=== PATIENT | female | born 1980 | race Caucasian/White ===

== ENCOUNTER 2016-08-02 13:12 | Emergency (ER) | payer MEDICAID ==
[2016-08-02 13:13] VITALS: BMI 27.6
[2016-08-02 13:35] VITALS: BP 111/74; PULSE 58; RESP 18; TEMP 98.1; O2SAT 98
--- NOTE | 2016-08-02 14:39 | ED PDOC ---
Arrival/HPI - General Chief Complaint: GI Problem Time Seen by Provider: 08/02/16 14:29 Historian: Patient - History of Present Illness Narrative History of Present Illness (Text): 08/02/16 14:29 36 y/o female, pmh including HIV (CD4 count undetectable about 2 months ago), allergic to sulfa and fluoroquinolones, c/o coughing/headache/diarrhea x 3 days with no recent traveling. Pt. stated that she nasa congestion with the sinus pressure, aching throat pain with productive coughing, +smoker, associated with loose stool about 3 days ago with total of 3 episodes with no blood. Pt. has no rash, no neck stiffness, no dizziness, no change in vision, no fatigue or lethargic, no other medical or psychological complaints. Past Medical History - Provider Review Nursing Documentation Reviewed: Yes - Past History Past History: Non-Contributing - Infectious Disease Hx of Infectious Diseases: None - Tetanus Immunization Tetanus Immunization: Up to Date - Cardiac Hx Cardiac Disorders: Yes Hx Hypertension: Yes - Pulmonary Hx Chronic Obstructive Pulmonary Disease (COPD): Yes - Neurological Hx Neurological Disorder: No - HEENT Hx HEENT Disorder: No - Renal Hx Renal Disorder: No - Endocrine/Metabolic Hx Endocrine Disorders: No - Hematological/Oncological Hx Hepatitis C: Yes - Integumentary Hx Dermatological Disorder: No - Musculoskeletal/Rheumatological Hx Falls: No - Gastrointestinal Hx Gastrointestinal Disorders: No - Genitourinary/Gynecological Hx Genitourinary Disorders: No - Psychiatric Hx Depression: No Hx Emotional Abuse: No Hx Physical Abuse: No Hx Substance Use: No - Past Surgical History Past Surgical History: Non-Contributing - Surgical History Hx Section: Yes (3) Hx Tubal Ligation: Yes - Anesthesia Hx Anesthesia: Yes Hx Anesthesia Reactions: No Hx Malignant Hyperthermia: No - Suicidal Assessment Feels Threatened In Home Enviroment: No Family/Social History - Physician Review Nursing Documentation Reviewed: Yes Family/Social History: Unknown Family HX Smoking Status: Light Smoker < 10 Cigarettes Daily Hx Alcohol Use: Yes Frequency of alcohol use: Socially Hx Substance Use: No Hx Substance Use Treatment: No Allergies/Home Meds Allergies/Adverse Reactions: Allergies sulfamethoxazole Allergy (Verified 08/02/16 13:37) ITCHING bactrim Allergy (Uncoded 08/02/16 13:37) ITCHING levaq Allergy (Uncoded 08/02/16 13:37) ITCHING Home Medications: Home Meds Medication Instructions Recorded Confirmed Emtricitabine/Tenofovir [Truvada 1 tab PO DAILY 08/02/16 08/02/16 200 mg-300 mg Tablet] Tivicay 1 tab PO DAILY 08/02/16 08/02/16 Review of Systems - Review of Systems Constitutional: absent: Fatigue, Fevers Eyes: absent: Vision Changes ENT: Rhinorrhea, Sinus Congestion. absent: Hearing Changes, Tinnitus, TMJ Pain , Voice Changes, Sore Throat Respiratory: Cough, Sputum, Wheezing. absent: SOB Cardiovascular: absent: Chest Pain Gastrointestinal: Diarrhea. absent: Abdominal Pain, Nausea, Vomiting Genitourinary Female: absent: Dysuria, Frequency, Hematuria, Urine Output Changes, Vaginal Bleeding, Vaginal Discharge, Other Skin: absent: Rash, Skin Lesions, Laceration, Abscess, Ulcer, Cellulitis Neurological: Headache. absent: Dizziness, Focal Weakness, Gait Changes, Speech Changes, Facial Droop, Disequilibrium, Seizure Physical Exam Vital Signs Reviewed: Yes Vital Signs Temp Pulse Resp BP Pulse Ox 08/02/16 13:29 98.1 F 58 L 18 111/74 98 Temperature: Afebrile Blood Pressure: Normal Pulse: Regular Respiratory Rate: Normal Appearance: Positive for: Well-Appearing, Non-Toxic, Comfortable Pain Distress: Moderate Mental Status: Positive for: Alert and Oriented X 3 - Systems Exam Head: Present: Normocephalic. No: Atraumatic Pupils: Present: PERRL Extroacular Muscles: Present: EOMI Conjunctiva: Present: Normal Ears: Present: NORMAL TM, Normal Canal. No: Erythema Mouth: Present: Moist Mucous Membranes, Normal Lips. No: Drooling, Normal Tounge, Normal Teeth Pharnyx: No: ERYTHEMA, EXUDATE, TONSILS ENLARGED, Uvular Deviation, Muffled/ Hoarse Voice, Soft Palate/Uvular Edema Nose (Internal): Present: Normal Inspection, No Active Bleeding, Rhinorrhea, Other (no visible foreign bodies. ). No: Purulent Mucous, Septal Deviation, Septal Hematoma, Epistaxis Neck: Present: Normal Range of Motion, Trachea Midline. No: Meningeal Signs, MIDLINE TENDERNESS, Paraspinal Tenderness, Lymphadenopathy Respiratory/Chest: Present: Wheezes, Decreased Breath Sounds, Rhonchi, Other ( there is bilateral wheezing with the rhonchi noted. ). No: Retracting, Tachypneic, Tender to Palpation Cardiovascular: Present: Regular Rate and Rhythm, Normal S1, S2. No: Murmurs Abdomen: Present: Normal Bowel Sounds. No: Tenderness, Distention, Rebound, Guarding Back: Present: Normal Inspection. No: CVA Tenderness, Midline Tenderness Upper Extremity: Present: Normal Inspection, Normal ROM. No: Deformity Lower Extremity: Present: Normal Inspection, Normal ROM. No: Deformity Neurological: Present: GCS=15, Speech Normal, Motor Func Grossly Intact, Gait Normal, Memory Normal Skin: Present: Warm, Dry, Normal Color. No: Rashes Lymphatic: No: Cervical Adenopathy Psychiatric: Present: Alert, Oriented x 3, Normal Insight, Normal Concentration Medical Decision Making ED Course and Treatment: 08/02/16 14:41 -labs/ua/stool culture and c.diff/rapid flu -chest x-ray -duondb/prednisone/reglan/toradol/IVF -observe and reassess 08/02/16 15:53 -Chest x-ray show no active disease -Pt. declined lab works and IV medications, limited access to the patient's labs -Rapid flu negative. -I was notified by the [employer] REPA[employer]ER Bobby that the patient eloped from the ER which I checked and only found wrist band ID and gown on the bed side, she will be placed as elopement. - Lab Interpretations Lab Results: Lab Results 08/02/16 14:50: Urine Color Yellow, Urine Appearance Turbid, Urine pH 6.0, Ur Specific [place] >= 1.030, Urine Protein Trace H, Urine Glucose (UA) Negative, Urine Ketones Negative, Urine Blood Trace-intact H, Urine Nitrate Negative, Urine Bilirubin Negative, Urine Urobilinogen 0.2, Ur Leukocyte Esterase Negative , Urine RBC 0 - 2, Urine WBC 0 - 2, Ur Epithelial Cells Many 08/02/16 14:30: Influenza Typ A,B (EIA) Negative for flu a/b - RAD Interpretation Radiology Orders: 08/02/16 14:40 CHEST PORTABLE [RAD] Stat - Medication Orders Current Medication Orders: Discontinued Medications Albuterol/Ipratropium (Duoneb 3 Mg/0.5 Mg (3 Ml) Ud) 6 ml IH STAT STA Stop: 08/02/16 14:41 Last Admin: 08/02/16 15:02 Dose: 6 ML Amoxicillin/Clavulanate Potassium (Augmentin 875 Mg-125 Mg Tab) 1 tab PO STAT STA PRN Reason: Protocol Stop: 08/02/16 14:41 Last Admin: 08/02/16 15:02 Dose: 1 TAB Sodium Chloride (Sodium Chloride 0.9%) 1,000 mls @ 999 mls/hr IV .Q1H1M STA Stop: 08/02/16 15:40 Last Admin: 08/02/16 15:01 Dose: Not Given Non-Admin Reason: Patient Refused Ketorolac Tromethamine (Toradol) 30 mg IVP STAT STA Stop: 08/02/16 14:45 Metoclopramide HCl (Reglan) 10 mg IVP STAT STA Stop: 08/02/16 14:45 Last Admin: 08/02/16 15:01 Dose: Not Given Non-Admin Reason: Patient Refused Prednisone (Prednisone Tab) 60 mg PO STAT ONE Stop: 08/02/16 14:41 Last Admin: 08/02/16 15:01 Dose: 60 MG - PA / SPUD DRILLER / Resident Statement MD/DO has reviewed & agrees with the documentation as recorded. Disposition/Present on Arrival - Present on Arrival Any Indicators Present on Arrival: No History of DVT/PE: No History of Uncontrolled Diabetes: No Urinary Catheter: No History of Decub. Ulcer: No History Surgical Site Infection Following: None - Disposition Have Diagnosis and Disposition been Completed?: Yes Diagnosis: Bronchitis, Non compliance with medical treatment Disposition: ELOPEMENT - ER ONLY Disposition Time: 15:56 Patient Plan: Other (eloped) Condition: STABLE
[2016-08-02] MEDS ORDERED: Albuterol-Ipratrop 3 mg / 0.5 (3 ml) UD IH STA (14:40)
[2016-08-02] MEDS ORDERED: Amoxicillin-Clav 875-125 mg Tab PO STA (14:40)
[2016-08-02] MEDS ORDERED: Sodium Chloride 0.9% 1,000 ML IV STA (14:40)
[2016-08-02 15:12] LABS: URINE APPEARANCE TURBID (CLEAR); URINE BILIRUBIN NEGATIVE (NEGATIVE); URINE BLOOD TRACE-INTACT (NEGATIVE); URINE COLOR YELLOW (YELLOW); URINE GLUCOSE (UA) NEGATIVE (NEGATIVE); URINE KETONE NEGATIVE (NEGATIVE); URINE LEUKOCYTE ESTERASE NEGATIVE Leu/uL (NEGATIVE); URINE PROTEIN TRACE mg/dL (<30 mg/dL); URINE UROBILINOGEN 0.2 E.U./dL (<1 E.U./dL)
[2016-08-02 15:14] LABS: URINE EPITHELIAL CELLS MANY /hpf (0-5); URINE RBC 0 - 2 /hpf (0-2); URINE WBC 0 - 2 /hpf (0-6)
--- NOTE | 2016-08-02 15:39 | RAD ---
HISTORY: coughing and wheezing COMPARISON: 01/02/2015 FINDINGS: LUNGS: No active pulmonary disease. PLEURA: No significant pleural effusion identified, no pneumothorax apparent. CARDIOVASCULAR: Normal. OSSEOUS STRUCTURES: No significant abnormalities. VISUALIZED UPPER ABDOMEN: Normal. OTHER FINDINGS: None. IMPRESSION: No active disease.
== END 2016-08-02 15:50 | disposition left against medical advice (07) ==
LOC: ED 13:12
DX: J40 Bronchitis, not specified as acute or chronic (principal); Z91.19 Patient's noncompliance with other medical treatment and regimen; F17.210 Nicotine dependence, cigarettes, uncomplicated; I10 Essential (primary) hypertension; Z21 Asymptomatic human immunodeficiency virus [HIV] infection status

== ENCOUNTER 2017-10-02 16:51 | Emergency (ER) | payer MEDICAID ==
[2017-10-02 16:51] VITALS: BMI 27.6
[2017-10-02 17:09] VITALS: PULSE 68; TEMP 98.5; O2SAT 98
--- NOTE | 2017-10-02 18:38 | CT ---
PROCEDURE: CT cervical spine dated 10/02/2017 HISTORY: Neck pain COMPARISON: None available. TECHNIQUE: Axial computed tomography images were obtained of the cervical spine without the use of intravenous contrast. Coronal and sagittal reformatted images were created and reviewed. Radiation dose: Total exam DLP = 417.66 mGy-cm. This CT exam was performed using one or more of the following dose reduction techniques: Automated exposure control, adjustment of the mA and/or kV according to patient size, and/or use of iterative reconstruction technique. FINDINGS: VERTEBRAE: No acute compression fractures no retropulsed fragments. Vertebral bodies exhibit normal stature. Aligned there is mild reversal of the normal cervical lordosis /kyphosis centered at the C4-C5 level. Vertebral bodies otherwise exhibit normal alignment. Facets normally aligned. DISCS/SPINAL CANAL/NEURAL FORAMINA: . There is mild disc space narrowing seen at the C5-C6 level. . There is also a small central and bilateral osteophytic ridge disc complex that indents the ventral surface of the thecal sac and spinal cord. The uncovertebral joints are also slightly overgrown. Facets are prominent. Right exit foramen is stenotic. Left exit foramen is marginal to mildly narrowed. At the C4-C5 level, there is adequate disc height. No disc herniation however mild hypertrophic uncovertebral joint changes right greater than left. Facets are also slightly overgrown. Right exit foramen is stenotic. Left exit foramen adequate. At the at C3-C4 level, there is adequate disc height. The right facet joints slightly overgrown. Central canal and exit foramina appear adequate. PARASPINAL SOFT TISSUES: Unremarkable. OTHER FINDINGS: Lung apices clear. IMPRESSION: No acute fractures. Mild multilevel degenerative spondylosis most notably affecting the C5-C6 through the C3-C4 levels in decreasing order of severity. . There is also mild reversal of the normal cervical lordosis/kyphotic angulation centered at the C4-C5 level.
--- NOTE | 2017-10-02 18:46 | ED PDOC ---
Arrival/HPI - General Chief Complaint: Pain, Chronic Time Seen by Provider: 10/02/17 17:13 Historian: Patient - History of Present Illness Narrative History of Present Illness (Text): 10/02/17 18:40 37yo female who present with complaint of left sided neck pain that radiates to her left arm x 3weeks(contrary to 2weeks in triage note). States she has been seen at different ED for this pain and was given NSAID and flexeril, which is not helping. She notes that she also saw her PMD twice and was advised to go back to ED. She denies focal weakness, trauma, fever, rash, chest pain, any other complaint. Past Medical History - Provider Review Nursing Documentation Reviewed: Yes - Past History Past History: Non-Contributing - Infectious Disease Hx of Infectious Diseases: None - Tetanus Immunization Tetanus Immunization: Up to Date - Cardiac Hx Cardiac Disorders: Yes Hx Hypertension: Yes - Pulmonary Hx Respiratory Disorders: Yes Hx Chronic Obstructive Pulmonary Disease (COPD): Yes - Neurological Hx Neurological Disorder: No - HEENT Hx HEENT Disorder: No - Renal Hx Renal Disorder: No - Endocrine/Metabolic Hx Endocrine Disorders: No - Hematological/Oncological Hx Blood Disorders: Yes Hx Hepatitis C: Yes - Integumentary Hx Dermatological Disorder: No - Musculoskeletal/Rheumatological Hx Musculoskeletal Disorders: No - Gastrointestinal Hx Gastrointestinal Disorders: No - Genitourinary/Gynecological Hx Genitourinary Disorders: No - Psychiatric Hx Psychophysiologic Disorder: Yes Hx Depression: Yes Hx Substance Use: No - Past Surgical History Past Surgical History: Non-Contributing - Surgical History Hx Section: Yes (3) Hx Tubal Ligation: Yes - Anesthesia Hx Anesthesia: Yes Hx Anesthesia Reactions: No Hx Malignant Hyperthermia: No - Suicidal Assessment Feels Threatened In Home Enviroment: No Family/Social History - Physician Review Nursing Documentation Reviewed: Yes Family/Social History: Unknown Family HX Smoking Status: Light Smoker < 10 Cigarettes Daily Hx Alcohol Use: Yes Frequency of alcohol use: Socially Hx Substance Use: No Hx Substance Use Treatment: No Allergies/Home Meds Allergies/Adverse Reactions: Allergies sulfamethoxazole Allergy (Verified 10/02/17 17:03) ITCHING bactrim Allergy (Uncoded 10/02/17 17:03) ITCHING levaq Allergy (Uncoded 10/02/17 17:03) ITCHING Home Medications: Home Meds Medication Instructions Recorded Confirmed No Known Home Med 10/02/17 10/02/17 Review of Systems - Physician Review All systems were reviewed & negative as marked: Yes - Review of Systems Constitutional: Normal Eyes: Normal ENT: Normal Respiratory: Normal Cardiovascular: Normal Gastrointestinal: Normal Genitourinary Female: Normal Musculoskeletal: Neck Pain Skin: Normal Neurological: Normal Endocrine: Normal Hemo/Lymphatic: Normal Psychiatric: Normal Physical Exam Vital Signs Reviewed: Yes Vital Signs Temp Pulse Resp BP Pulse Ox 10/02/17 19:12 98.5 F 68 18 130/85 98 10/02/17 17:03 98.5 F 68 17 134/90 98 Temperature: Afebrile Blood Pressure: Normal Pulse: Regular Respiratory Rate: Normal Appearance: Positive for: Well-Appearing, Non-Toxic, Comfortable Pain Distress: None Mental Status: Positive for: Alert and Oriented X 3 - Systems Exam Head: Present: Atraumatic, Normocephalic Pupils: Present: PERRL Extroacular Muscles: Present: EOMI Conjunctiva: Present: Normal Mouth: Present: Moist Mucous Membranes Neck: Present: Normal Range of Motion (With pain on lateral bending to the left) . No: MIDLINE TENDERNESS, Paraspinal Tenderness Respiratory/Chest: Present: Clear to Auscultation, Good Air Exchange. No: Respiratory Distress, Accessory Muscle Use Cardiovascular: Present: Regular Rate and Rhythm, Normal S1, S2. No: Murmurs Abdomen: No: Tenderness, Distention, Peritoneal Signs Back: Present: Normal Inspection Upper Extremity: Present: Normal Inspection. No: Cyanosis, Edema Lower Extremity: Present: Normal Inspection. No: Edema Neurological: Present: GCS=15, CN II-XII Intact, Speech Normal Skin: Present: Warm, Dry, Normal Color. No: Rashes Psychiatric: Present: Alert, Oriented x 3, Normal Insight, Normal Concentration Medical Decision Making ED Course and Treatment: 10/02/17 20:27 Pt presented for stated history. She was NVI and had no focal neurological deficit in ED. On re evaluation she notes that her pain improved in ED with medication Cervical CT IMPRESSION: No acute fractures. Mild multilevel degenerative spondylosis most notably affecting the C5-C6 through the C3-C4 levels in decreasing order of severity. . There is also mild reversal of the normal cervical lordosis/kyphotic angulation centered at the C4-C5 level. Result was DW the pt and she was DC home with valium 2mg. She have Naprosyn at home and was advised to continue with the medication. Referred to ortho. - RAD Interpretation Radiology Orders: 10/02/17 17:19 CERVICAL SPINE W/O CONTRAST [CT] Stat - Medication Orders Current Medication Orders: Discontinued Medications Diazepam (Valium) 5 mg PO ONCE ONE PRN Reason: Protocol Stop: 10/02/17 17:27 Last Admin: 10/02/17 17:37 Dose: 5 mg Ketorolac Tromethamine (Toradol) 60 mg IM STAT STA Stop: 10/02/17 17:22 Last Admin: 10/02/17 17:37 Dose: 60 mg MAR Pain Assessment Document 10/02/17 17:37 LA (Rec: 10/02/17 17:38 LA [id number]) Pain Reassessment Is this a pain reassessment? No Presence of Pain Presence of Pain Yes Pain Scale Used Pain Scale Used Numeric Location Left, Right or Bilateral Left Pain Location Body Site Neck Back Description Description Constant Intensity of Pain at present 10 Pain Behavior Guarding IM Administration Charges Document 10/02/17 17:37 LA (Rec: 10/02/17 17:38 LA [id number]) Injection Site MAR Injection Site Right Gluteus Osbaldo Charges for Administration # of IM Administrations 1 Disposition/Present on Arrival - Present on Arrival Any Indicators Present on Arrival: No History of DVT/PE: No History of Uncontrolled Diabetes: No Urinary Catheter: No History of Decub. Ulcer: No History Surgical Site Infection Following: None - Disposition Have Diagnosis and Disposition been Completed?: Yes Diagnosis: Neck pain Disposition: HOME/ ROUTINE Disposition Time: 18:50 Patient Plan: Discharge Condition: STABLE Discharge Instructions (ExitCare): Neck Pain Additional Instructions: Follow up with your Doctor/Orthopedist Return to ED for any new symptoms Referrals: [place] Catrachita Schwarz, [Primary Care Provider] - Follow up with primary Nicolas Arciniega MD [Staff Provider] - Follow up with primary Forms: [employer] ([place]rainian)
[2017-10-02 19:13] VITALS: BP 130/85; RESP 18
== END 2017-10-02 19:12 | disposition home or self-care (01) ==
LOC: ED 16:51
DX: M54.2 Cervicalgia (principal); I10 Essential (primary) hypertension; F17.210 Nicotine dependence, cigarettes, uncomplicated
CPT/HCPCS: 72125; 96372; 99283; J1885